=== PATIENT | male | born 1965 | race Caucasian/White ===

== ENCOUNTER 2018-02-26 12:46 | Observation (INO) | payer SELFPAY ==
[~2018-02-26] VITALS: Ht 167.6 cm; Wt 82.6 kg
[2018-02-26 14:03] LABS: BASOPHILS % 0.4 % (0.0-2.0); EOSINOPHILS % 1.8 % (0.0-5.0); HEMATOCRIT. 44.4 % (42.0-52.0); HEMOGLOBIN. 14.9 g/dL (14.0-18.0); LYMPHOCYTES % 18.7 % (20.0-50.0); MEAN CORPUSCULAR VOLUME 89.3 fL (80.0-94.0); MEAN PLATELET VOLUME 7.6 fl (7.4-10.4); MONOCYTES % 5.5 % (2.0-8.0); NEUTROPHILS % 73.6 % (40.0-76.0); PLATELET 417 x1000/uL (130-400); RED BLOOD CELL COUNT 4.98 mill/uL (4.7-6.1); RED CELL DISTRIBUTION WIDTH 13.2 % (11.6-14.6)
[2018-02-26 14:05] LABS: CHLORIDE 105 mEq/L (98-107)
[2018-02-26 14:09] LABS: ETHANOL BLOOD < 10 mg/dL
[2018-02-26 14:12] LABS: LDL CHOLESTEROL 265 mg/dL (5-100)
[2018-02-26] MEDS ORDERED: IOHEXOL-350 100 ML BOTTLE ONE (14:31)
[2018-02-26 15:10] LABS: CLARITY URINE CLEAR (CLEAR); COLOR URINE YELLOW (YELLOW); KETONES URINE NEGATIVE (NEGATIVE); LEUKOCYTE ESTERASE URINE TRACE (NEGATIVE); NITRITE URINE NEGATIVE (NEGATIVE); OCCULT BLOOD URINE NEGATIVE (NEGATIVE); PROTEIN URINE NEGATIVE (NEGATIVE); SPECIFIC GRAVITY URINE 1.006 (1.005-1.030); UROBILINOGEN URINE 0.2 E.U./dL (0.2-1.0)
[2018-02-26 15:27] LABS: *AMPHETAMINES SCREEN URINE NEGATIVE (NEGATIVE); *BARBITURATES SCREEN URINE NEGATIVE (NEGATIVE); *BENZODIAZEPINES SCREEN URINE NEGATIVE (NEGATIVE); *COCAINE SCREEN URINE NEGATIVE (NEGATIVE)
[2018-02-26 15:28] LABS: CANNABINOID URINE SCREEN NEGATIVE (NEGATIVE); METHADONE URINE SCREEN NEGATIVE (NEGATIVE); OPIATES URINE SCREEN NEGATIVE (NEGATIVE); PHENCYCLIDINE URINE SCREEN NEGATIVE (NEGATIVE)
[2018-02-26] MEDS ORDERED: ONDANSETRON HCL 4MG/2ML VIAL IV PRN (15:30)
[2018-02-26] MEDS ORDERED: ACETAMINOPHEN 325MG TABLET PO PRN (15:30)
[2018-02-26] MEDS ORDERED: CLONIDINE 0.1MG TABLET PO PRN (15:30)
[2018-02-26] MEDS ORDERED: HYDROCODONE/ACETAMINOPHEN 5/325MG TABLET PO ONE (15:30)
[2018-02-26 15:47] LABS: PROTHROMBIN TIME 10.3 sec (9.4-11.6)
[2018-02-26 16:00] VITALS: BP 163/99
[2018-02-26 17:15] VITALS: BP 163/99
[2018-02-26] MEDS: ENOXAPARIN 40MG/0.4ML SYR SUBCUT SCH (17:52)
[2018-02-26 20:00] VITALS: BP 153/85
[2018-02-26] MEDS: ATORVASTATIN CALCIUM 40MG TABLET PO SCH (20:59)
[2018-02-27] VITALS: BP 107/83
[2018-02-27 04:00] VITALS: BP 128/82
[2018-02-27 08:00] VITALS: BP 117/73
[2018-02-27] MEDS: LOSARTAN POTASSIUM 50 MG TABLET PO SCH (08:28)
[2018-02-27] MEDS: ASPIRIN 81MG TABLET PO SCH (11:48)
[2018-02-27 12:00] VITALS: BP 121/77
[2018-02-27 16:00] VITALS: BP 110/52
[2018-02-27] MEDS: ENOXAPARIN 40MG/0.4ML SYR SUBCUT SCH (17:42)
[2018-02-27 20:00] VITALS: BP 120/74
[2018-02-27] MEDS: ATORVASTATIN CALCIUM 40MG TABLET PO SCH (20:58)
[2018-02-28] VITALS: BP 114/72
[2018-02-28 04:00] VITALS: BP 113/73
[2018-02-28 06:45] LABS: HEMATOCRIT 43.4 % (42.0-52.0); HEMOGLOBIN 14.7 g/dL (14.0-18.0); MEAN CORPUSCULAR HEMOGLOBIN 30.4 pg (28.0-32.0); PLATELET 405 x1000/uL (130-400); RED BLOOD CELL COUNT 4.82 mill/uL (4.7-6.1); RED CELL DISTRIBUTION WIDTH 13.4 % (11.6-14.6)
[2018-02-28 06:47] LABS: CHLORIDE 104 mEq/L (98-107)
[2018-02-28] MEDS: ASPIRIN 81MG TABLET PO SCH (09:42)
[2018-02-28] MEDS: LOSARTAN POTASSIUM 50 MG TABLET PO SCH (09:42)
[2018-02-28] MEDS ORDERED: LIP40 PO (10:29)
[2018-02-28] MEDS ORDERED: LOSA50TA3 PO (10:29)
[2018-02-28 15:04] VITALS: BP 120/75
== END 2018-02-28 16:05 | disposition home or self-care (01) ==
LOC: ER 12:46 → INTOOBSV 15:21 → 5WST 15:21 → EDBEDREQ 15:23 → EDBEDREQSVC 15:23 → ENRESERV 15:38
PROVIDERS: ADMIT Internal Medicine; ATTEND Internal Medicine
DX: R29.810 Facial weakness (principal); R51 Headache; R11.2 Nausea with vomiting, unspecified; E78.5 Hyperlipidemia, unspecified; I10 Essential (primary) hypertension; Z91.14 Patient's other noncompliance with medication regimen
CPT/HCPCS: 36415; 70450; 70496; 70551; 71045; 80048; 80053; 80061; 80305; 81003; 82962; 83036; 83721; 84443; 84484; 85025; 85027; 85610; 93005; 93306; 93880; 96372; 97162; 97165; 99291; G0378; G0482; J1650; Q9967

== ENCOUNTER 2018-04-05 13:12 | Emergency (ER) | payer SELFPAY ==
[~2018-04-05] VITALS: Ht 167.6 cm; Wt 89.0 kg
[~2018-04-05 13:12] MED LIST: LIP40 PO; LOSA50TA3 PO
[2018-04-05 13:16] VITALS: BP 139/80
== END 2018-04-05 22:52 | disposition home or self-care (01) ==
LOC: ER 19:25
DX: Z76.0 Encounter for issue of repeat prescription (principal); I10 Essential (primary) hypertension; E78.00 Pure hypercholesterolemia, unspecified
CPT/HCPCS: 99283